=== PATIENT | male | born 1995 | race Caucasian/White ===

== ENCOUNTER 2017-03-12 08:42 | Emergency (ER) | payer BC, OTHER ==
[~2017-03-12] VITALS: Ht 188 cm; Wt 57.0 kg
[~2017-03-12 08:42] MED LIST: OMEP10CA37 PO; ROBA750T3 PO; SUCR1TAB PO; ZOFR4TAB3 PO
[2017-03-12 08:45] VITALS: BP 132/82; PULSE 100; RESP 24; TEMP 97.9; O2SAT 99
--- NOTE | 2017-03-12 09:21 | PD ---
HPI Chief Complaint: Chest Pain Time Seen by Provider: 09:15 Travel History International Travel<30 days: No Contact w/Intl Traveler<30days: No Traveled to known affect area: No History of Present Illness HPI 21-year-old male complains of left-sided chest pain and shortness of breath. Patient states that the symptoms started about an hour prior coming to the emergency room. Patient states the pain started as sharp stabbing pain and became aching pain now. Patient denies any coughing congestion fever chills. Patient states the pain is worse with deep inspiration. Patient denies any fever chills. Patient has history spontaneous pneumothorax in the past. PFSH Past Medical History Arthritis: No Asthma: No Autoimmune Disease: No Anxiety: No Depression: No Heart Rhythm Problems: No Cancer: No Cardiovascular Problems: Yes (FAMILY HX OF CONNECTIVE TISSUE DISORDER) Chest Pain: No Congestive Heart Failure: No Cerebrovascular Accident: No Diabetes: No Diminished Hearing: No Endocrine: No Gastrointestinal Disorders: Yes GERD: Yes Genitourinary: No Hiatal Hernia: No Immune Disorder: No Musculoskeletal: Yes Neurologic: No Psychiatric: No Reproductive: No Respiratory: Yes (pneumothorax) Immunizations Current: Yes Migraines: No Seizures: Yes (not really sure, possible) Sleep Apnea: No Thyroid Disease: No Ulcer: No PNEUMOCCOCAL Vaccine (Year): 2 Past Surgical History Abdominal Surgery: No Cardiac Surgery: No Ear Surgery: No Endocrine Surgery: No Eye Surgery: No Genitourinary Surgery: No Gynecologic Surgery: No Oral Surgery: Yes (WISDOM TOOTH EXTRACTION) Thoracic Surgery: Yes (2 LUNG SURGERIES FOR BLEBS) Social History Alcohol Use: No Tobacco Use: No (quit) Substance Use: Yes (MARIJUANA ) Allergies-Medications (Allergen,Severity, Reaction): Coded Allergies: No Known Allergies (Verified , 02/12/16) Reported Meds & Prescriptions Reported Meds & Active Scripts Active No Active Prescriptions or Reported Medications Review of Systems General / Constitutional: No: Fever Eyes: No: Visual changes HENT: No: Headaches Cardiovascular: Positive: Chest Pain or Discomfort Respiratory: Positive: Shortness of Breath Gastrointestinal: No: Abdominal Pain Genitourinary: No: Dysuria Musculoskeletal: No: Pain Skin: No Rash Neurologic: No: Weakness Psychiatric: No: Depression Endocrine: No: Polydipsia Hematologic/Lymphatic: No: Easy Bruising Physical Exam Narrative GENERAL: Well-nourished, well-developed patient. SKIN: Focused skin assessment warm/dry. HEAD: Normocephalic. EYES: No scleral icterus. No injection or drainage. NECK: Supple, trachea midline. No JVD or lymphadenopathy. CARDIOVASCULAR: Regular rate and rhythm without murmurs, gallops, or rubs. RESPIRATORY: Breath sounds equal bilaterally. No accessory muscle use. GASTROINTESTINAL: Abdomen soft, non-tender, nondistended. MUSCULOSKELETAL: No cyanosis, or edema. BACK: Nontender without obvious deformity. No CVA tenderness. Neurologic exam normal. Data Data Last Documented VS Vital Signs Date Time Temp Pulse Resp B/P Pulse Ox O2 Delivery O2 Flow Rate FiO2 03/12/17 08:56 100 Nasal Cannula 03/12/17 08:45 97.9 100 24 132/82 Orders Chest, Single Ap (03/12/17 09:19) [facility] Medical Decision Making Medical Screen Exam Complete: Yes Emergency Medical Condition: Yes Interpretation(s) Last Impressions Chest X-Ray 03/12/17918 Signed Impressions: Service Date/Time: February 09:31 - CONCLUSION: No acute disease. There is no pneumothorax. Ross Esquivel MD Differential Diagnosis Differential diagnosis including pleurisy, musculoskeletal, pneumothorax. Narrative Course 21-year-old male with left-sided chest pain. History of spontaneous pneumothorax in the past. Diagnosis Primary Impression: Pleurisy Patient Instructions: General Instructions Additional Instructions: Ibuprofen as needed for pain. Follow-up with personal physician. Return if worse. Med/Other Pt SpecificInfo: Prescription(s) given Scripts Ibuprofen 600 Mg [id number] Mg PO TID #30 TAB Prov:Prashant Portillo MD 03/12/17 Disposition: 01 DISCHARGE HOME Condition: Stable Prashant Portillo MD Mar 12, 2017 09:21
--- NOTE | 2017-03-12 09:56 | RADRPT ---
EXAM DATE/TIME: 03/12/2017 09:31 [facility] COMPARISON: No previous studies available for comparison. INDICATIONS : Short of breath and chest pain since this morning. MEDICAL HISTORY : History of spontanous pneumothorax. SURGICAL HISTORY : None. ENCOUNTER: Initial ACUITY: 1 day PAIN SCORE: 6/10 LOCATION: Bilateral chest FINDINGS: A single view of the chest demonstrates the lungs to be symmetrically aerated without evidence of mas s, infiltrate or effusion. The cardiomediastinal contours are unremarkable. Osseous structures are intact. There are multiple overlying retrocardiac leads. CONCLUSION: No acute disease. There is no pneumothorax. Ross Esquivel MD on March 12, 2017 at 9:54 Board Certified Radiologist. This report was verified electronically.
[2017-03-12] MEDS ORDERED: IBUP-232 PO (10:23)
== END 2017-03-12 10:55 | disposition home or self-care (01) ==
LOC: NEPE 08:42
DX: R09.1 Pleurisy (principal); R06.02 Shortness of breath; K21.9 Gastro-esophageal reflux disease without esophagitis
CPT/HCPCS: 71010; 99283